=== PATIENT | female | born 1985 | race Caucasian/White ===

== ENCOUNTER 2019-06-02 05:24 | Day surgery (SDC) | payer OTHER ==
[2019-05-26 09:39] LABS: HEMATOCRIT 39.6 % (36.0-47.0); HEMOGLOBIN 13.4 g/dL (12.0-15.5); MEAN CORPUSCULAR HEMOGLOBIN 31.4 pg (27.0-33.4); MEAN CORPUSCULAR HGB CONC 33.9 g/dL (32.0-36.0); MEAN CORPUSCULAR VOLUME 92 fl (80-97); PLATELET COUNT 252 10^3/uL (150-450); RED BLOOD COUNT 4.29 10^6/uL (3.72-5.28); RED CELL DISTRIBUTION WIDTH 12.7 % (11.5-14.0); WHITE BLOOD COUNT 4.8 10^3/uL (4.0-10.5)
[2019-05-26 09:39] LABS: APPEARANCE,URINE CLEAR; BILIRUBIN,URINE NEGATIVE (NEGATIVE); COLOR,URINE YELLOW; GLUCOSE, URINE NEGATIVE (NEGATIVE); KETONES,URINE NEGATIVE (NEGATIVE); LEUKOCYTE ESTERASE,URINE NEGATIVE (NEGATIVE); NITRITE,URINE NEGATIVE (NEGATIVE); PROTEIN,URINE NEGATIVE (NEGATIVE); URINE SPECIFIC GRAVITY 1.024; UROBILINOGEN,URINE NEGATIVE mg/dL (<2.0)
[2019-05-26 10:06] LABS: ANION GAP 10 (5-19); BLOOD UREA NITROGEN 12 mg/dL (7-20); CALCIUM 9.2 mg/dL (8.4-10.2); CARBON DIOXIDE 27 mmol/L (22-30); CHLORIDE 105 mmol/L (98-107); POTASSIUM 4.4 mmol/L (3.6-5.0)
[2019-05-26 10:10] LABS: GLUCOSE 68 mg/dL (75-110)
[~2019-06-02 05:24] MED LIST: CEFAZOLIN SODIUM 1 GM in DEXTROSE 5%-WATER 50 ML IV PRN; LACTATED RINGERS 1000 ML IV PRN; LIDOCAINE 0.5% INJ-PF (5 MG/ML) 50 ML SDV SUBCUT PRN
[2019-06-02] MEDS ORDERED: FENTANYL CITRATE INJ/PF 100 MCG/2 ML AMPUL ONE (06:53)
[2019-06-02] MEDS ORDERED: ONDANSETRON HCL INJ/PF 4 MG/2 ML SDV ONE (06:53)
[2019-06-02] MEDS ORDERED: PROPOFOL INJ 200 MG/20 ML VIAL IV ONE (06:53)
[2019-06-02] MEDS ORDERED: DEXAMETHASONE SOD PHOSPHATE INJ 4 MG/1 ML VIAL ONE (06:53)
[2019-06-02] MEDS ORDERED: MIDAZOLAM 2 MG/2 ML INJ ONE (06:53)
[2019-06-02] MEDS ORDERED: KETOROLAC TROMETHAMINE 60 MG/2 ML SDV ONE (06:53)
[2019-06-02] MEDS ORDERED: LIDOCAINE 0.5% INJ-PF (5 MG/ML) 50 ML SDV ONE (06:55)
[2019-06-02] MEDS ORDERED: LIDOCAINE 1%/EPINEPHRINE INJ 20 ML VIAL ONE (07:08)
[2019-06-02] MEDS ORDERED: MORPHINE SULFATE 10 MG/ML INJ IV PRN (07:57)
[2019-06-02] MEDS ORDERED: PROMETHAZINE HCL INJ 25 MG/1 ML VIAL IV PRN ×2 (07:57)
[2019-06-02] MEDS ORDERED: OXYCODONE-ACETAMINOPHEN 5-325 MG TABLET PO PRN ×3 (07:57→08:29)
[2019-06-02] MEDS ORDERED: FENTANYL CITRATE INJ/PF 100 MCG/2 ML AMPUL IV PRN ×3 (07:57)
[2019-06-02] MEDS ORDERED: MEPERIDINE HCL/PF INJ 25 MG/1 ML DISP.SYRIN IV PRN (07:57)
[2019-06-02] MEDS ORDERED: DIPHENHYDRAMINE HCL 50 MG/ML VIAL IV PRN (07:57)
[2019-06-02] MEDS ORDERED: ONDANSETRON HCL INJ/PF 4 MG/2 ML SDV IV PRN (08:08)
[2019-06-02] MEDS ORDERED: MORPHINE SULFATE 10 MG/ML INJ INJ PRN ×2 (08:30→09:00)
[2019-06-02] MEDS ORDERED: PROMETHAZINE HCL INJ 25 MG/1 ML VIAL IM PRN (08:31)
[2019-06-02] MEDS ORDERED: OXYCODONE-ACETAMINOPHEN 5-325 MG TABLET ONE (08:43)
--- NOTE | 2019-06-02 08:56 | Operative Report ---
Operative Report DATE OF SURGERY: 06/02/19 PREOPERATIVE DIAGNOSIS: rectocele POSTOPERATIVE DIAGNOSIS: Same OPERATION: posterior colporrhaphy, perineoplasty SURGEON: CASSANDRA OLMEDO ANESTHESIA: GA TISSUE REMOVED OR ALTERED: vagina COMPLICATIONS: none ESTIMATED BLOOD LOSS: 15 ml INTRAOPERATIVE FINDINGS: rectocele PROCEDURE: The patient was apprised of complications such as bleeding infection anesthesia and damage to other organs and tissues including rectum the risk and benefits of the procedure are known to the patient. The perineal incision in the posterior portion of vagina after a rectal exam was performed the limits of the rectocele were delineated. Dissection continued superior to the rectal defect and laterally to encompass normal tissues bilaterally. Using multilayered 3-0 Vicryl stitch interrupted sutures were placed reducing the defect. Excess vaginal tissue was removed and the vagina was closed with a 3-0 chromic catgut including a perineal perineoplasty repair. Post procedure rectal performed demonstrating good reduction of the rectal defect and no stitches were noted in the rectum post repair
[2019-06-02 09:55] VITALS: BP 108/60
[2019-06-02] MEDS ORDERED: IBUPROFEN 800 MG TABLET PO SCH (10:00)
[2019-06-02] MEDS ORDERED: SUCCINYLCHOLINE CHLORIDE INJ 200 MG/10 ML VIAL ONE (13:12)
== END 2019-06-02 09:50 | disposition home or self-care (01) ==
LOC: OROUT 05:24
PROVIDERS: ATTEND Specialist
DX: N81.6 Rectocele (principal)
CPT/HCPCS: 86900; 86901; 36415; 86850; 82962; 85027; 81025; 80048; 81001; 57250; J2250; J0690; J1100; J1885; J3010; J3490 ×2; J0330; J2405; J7060; J2704; 902